=== PATIENT | male | born 1955 | race Asian ===

== ENCOUNTER 2025-03-14 10:35 | Outpatient (AMB) | payer MEDICARE, MEDICAID, SELFPAY ==
[2025-03-14 10:43] VITALS: BMI 28.3
--- NOTE | 2025-03-14 10:43 | A.PHYSOV_ITS ---
Vital Signs 03/14/25 10:43 Height 5 ft 5 in Weight 170 lb BMI 28.3 Intake Visit Reasons: NPV Mandie Ref- chronic rt shoulder/rt ankle pain Intake Note: Patient is a 70 year old male in office today as new patient for right shoulder pain and right ankle pain. Network Contract Manager Services: Network Contract Manager Offered & Declined Network Contract Manager Name: Zi Salas is here to translate. Allergies No Known Allergies Allergy (Verified 03/14/25 10:45) HPI Comments Details: Mr. Paul is a 70-year-old male seen in consultation today for right-sided shoulder and ankle pain. Patient denies any specific trauma. Has a pain level today of 7/10. The symptoms are worse with abduction of the right shoulder as well as ambulation on his right ankle. He has not completed. Patient will be traveling for the next 2 months. He is requesting cortisone injection to his right shoulder and right ankle. He has a pain level today of 7/10. Patient has been using naproxen for pain. He denies any incontinence, saddle anesthesia urinary retention. I reviewed the referring provider's no prior to consultation. Procedure: Right subacromial injection 03/14/2025 Right ankle cortisone injection 03/14/2025 [facility] Social History (Updated 03/14/25 @ 10:46 by Ivette Hernandez MA) Alcohol intake: current Alcohol intake frequency: holidays/special occasions only Patient Tobacco Use Status: Never used Tobacco Review of Systems Narrative Right-sided ankle and shoulder pain. No paresthesias or weakness. Physical Exam Exam Exam: Cervical Spine: Nontender to palpation of the cervical spine. Full range of motion. Special Tests: Axial Compression test: Negative Spurlings test: Negative Lhermitte's sign is Negative Upper Extremities: Patient has tender to the lateral deltoid. Has full range of motion of his shoulder in all planes. He has a positive Neer test. Negative empty can test. Full range of motion of his elbow wrist and hand. Equal aquatic laborer strength bilaterally. Neuro: Sensation: Intact to upper extremities bilateral to light touch Strength C5 (Elbow Flexion): 5/5 on the left and 5/5 on the right. C6 (Elbow Ext): 5/5 on the left and 5/5 on the right. C7 (Elbow Ext): 5/5 on the left and 5/5 on the right. C8 (Finger Flex): 5/5 on the left and 5/5 on the right. T1 (Finger Abd/Add): 5/5 on the left and 5/5 on the right. DTR: C5 (Biceps): Left 2 Right 2 C6 (Brachioradialis): Left 2 Right 2 C7 (Triceps): Left 2 Right 2 Umstafa sign: Negative No pathologic clonus. No involuntary movement. Examination of his right ankle, there is no effusion or deformity. He is tender over the talar dome. He has full range of motion of his ankle in all planes. He is otherwise neurovascularly intact. Vital Signs: BMI result Body Mass Index 28.3 Office Procedures AMB Ankle Injection Ankle Joint injection Procedure Details: Right Ankle injection patient was educated about the risks, complications and benefits of corticosteroid injection including increased serum glucose, infection, nerve damage, bleeding, tendon and ligament damage, fat atrophy, darkening in pigmentation of the skin. Patient's questions were answered at this time. Patient verbally consented to corticosteroid injection of the ankle. The anterior medial aspect of the ankle joint is cleansed with Betadine medial to the anterior tibialis tendon. Ethyl chloride was then used to desensitize the skin. With a 22-gauge needle 40 mg of Kenalog and 1 mL 2% lidocaine were injected into the ankle joint. Patient was cleansed with an alcohol prep and a Band-Aid was then applied. Patient tolerated the procedure well without immediate complication. Ankle Joint Injection : Right Procedure code (CPT) selection complete AMB Shoulder Injection AMB Shoulder Injection Procedure Details: Right Subacromial injection Procedure: The patient was educated about risks, complications and benefits including but not limited to increased serum glucose, infection, nerve damage, bleeding, tendon/ligament damage and pain. We agree with a subacromial injection is the next best step in the treatment plan. Verbal consent was obtained. Using aseptic technique, the skin was cleansed with Betadine. Ethyl chloride was used to desensitize the skin. Using a posterior approach, 40 mg of Kenalog and 3 mL 2% lidocaine were injected using a 25-gauge inch and a half needle into the subacromial space. The patient tolerated the procedure well without immediate complication. Postinjection instructions were given. Shoulder Injection - : Right All charges added?: Procedure code (CPT) selection complete Office Meds Kenalog 40 mg/mL suspension for injection Performing Provider: KURT Hayes Per[facility] Administered by: KURT Hayes on 03/14/25 12:44 Dose Route Admin Location Dispensed Lot Number Expiration Date [facility] [employer] Sequestration Plant Manager 40 mg intra-articular 1 mL [id number] [employer] Total Dispensed Waste 1 mL 0 % lidocaine (PF) 20 mg/mL (2 %) injection solution Performing Provider: KURT Hayes Performing Location: [facility] Administered by: KURT Hayes on 03/14/25 12:44 Dose Route Admin Location Dispensed Lot Number Expiration Date [facility] [employer] Sequestration Plant Manager 20 mg intra-articular 50 mL [id number] Total Dispensed Waste 50 mL 0 % Kenalog 40 mg/mL suspension for injection Performing Provider: KURT Hayes Performing Location: [facility] Administered by: KURT Hayes on 03/14/25 12:44 Dose Route Admin Location Dispensed Lot Number Expiration Date [facility] [employer] Sequestration Plant Manager 40 mg intra-articular 1 mL [id number] [employer] Total Dispensed Waste 1 mL 0 % lidocaine (PF) 20 mg/mL (2 %) injection solution Performing Provider: KURT Hayes Performing Location: [facility] Administered by: KURT Hayes on 03/14/25 12:44 Dose Route Admin Location Dispensed Lot Number Expiration Date [facility] [employer] Sequest[employer] Plant Manager 60 mg intra-articular 3 mL [id number] Total Dispensed Waste 3 mL 0 % Assessment & Plan Assessment & Plan (1) Osteoarthritis of ankle, right: Code(s): M19.071 - Primary osteoarthritis, right ankle and foot Category: Medical Qualifiers: Osteoarthritis type: primary Qualified Code(s): M19.071 - Primary osteoarthritis, right ankle and foot Plan Mr. Paul is a 70-year-old male seen in consultation today for right shoulder impingement and ankle osteoarthritis. He was educated about the course was condition and treatment options. Patient declined physical therapy. He will continue his medications as prescribed. He consented to right subacromial injection as well as right ankle joint injection. He was given post-injection instructions, recommend: Moist heat compresses for 15 minutes up to 5 times daily. Continue rotator cuff strengthening in his home exercise plan. We discussed the benefits of proper nutrition and exercise to maintain a healthy body weight to improve longevity and function. We also discussed the benefits of proper lifting techniques, core strengthening and proper posture. Follow-up with our office as needed. Thank you for allowing me to participate in the care of your patient. Orders: Orders AMB Shoulder Injection Today M19.071 - Primary osteoarthritis, right ankle and foot, M25.811 - Other specified joint disorders, right shoulder AMB Ankle Injection Today M19.071 - Primary osteoarthritis, right ankle and foot Coding Level of Care Code Tele New Pt Level 4 (73514) Diagnoses Primary osteoarthritis of right ankle M19.071 Osteoarthritis type: primary CPT Codes Ankle Joint injection - Ankle Joint Injection 16880: Right ([id number]) AMB Shoulder Injection - Hip/Bursa Injection - : Right ([id number])
--- OUTSIDE RECORDS SUMMARY | 2025-03-14 13:07 | XMS_ITS | Encounter Summary ---
Author Organization [facility] Address [address] [place] [address] Care Team Providers Care Household Appliances Salesperson Name Role Phone Lemuel Amanda MD Primary Care Provider [phone] Reason for Visit * Reason Onset Date Comments Prior Auth 02/19/2025 Encounter Details Date Type Department Care Team (Late st Contact Info) Description 02/19/2025 Telephone Endocrinology - [place] [address] [place] [phone] Luisa Kumar PA [address] [place] [address] Social History Tobacco Use Types Packs/Day Years Used Date Smoking Tobacco: Former Smokeless Tobacco: Never Alcohol Use Standard Drinks/Week Comments Yes 2 (1 standard drink = 0.6 oz pur e alcohol) Sex and Gender Information Value Date Recorded Sex Assigned at Not on file Legal Sex Male 7:45 PM EST Gender Identity Not on file Sexual Orientation Not on file documented as of this encounter Progress Notes * Shon Aguila - 02/19/2025 3:15 PM EST Endocrine Call Primary endocrine provider: Luisa Kumar PA-C Is the endocrine provider in the office toady?: yes Who is calling? A pharmacist: Pharmacy: [facility] Pharmacist Name: n/a Pharmacy . If not the patient or parent/guardian please check for authorization to share/verbal release. Why is the person calling? Prior authorization. Insulin pumps or CGM (Kashif or Dexcom). Please forward to endocrine pool (p [phone]). Cover my meds Freestyle kashif 3 plus sensor Sosa: [id number] documented in this encounter Plan of Treatment Upcoming Encounters Date Type Department Care Team (Late st Contact Info) Description 04/25/2025 8:45 AM EST Office Visit Endocrinology - [address] [phone] Luisa Kumar PA [address] [place], [place] 04/25/2025 2:00 PM EST Consult Nephrology - [address] [phone] Dutch Melendez MD [address] [phone] documented as of this encounter Visit Diagnoses Not on filedocumented in this encounter Care Teams Household Appliances Salesperson Relationship Specialty Start Date End Date Lemuel Amanda MD [address] [place] [phone] PCP - General Internal Medicine 10/16/14 documented as of this encounter
--- OUTSIDE RECORDS SUMMARY | 2025-03-14 13:07 | XMS_ITS | Encounter Summary ---
Author Organization [facility] [place] Address [address] [place] [address] Care Team Providers Care Network Engineer Administrator Name Role Phone Lemuel Amanda MD Primary Care Provider [phone] Encounter Details Date Type Department Care Team (Late st Contact Info) Description 01/30/2025 Results Follow-Up Internal Medicine - [address] [phone] Aaron Rico NP [address] [place] [address] Social History Tobacco Use Types Packs/Day Years [...] on file documented as of this encounter Ordered Prescriptions Prescription Sig Dispense Quantity Refills Last Filled Start Date End Date glipiZIDE (GLUCOTROL XL) 2.5 mg 24 hr tabletIndications: New onset type 2 diabetes mellitus (CMS/HCC V24, CMS/HCC V28) Take 1 tablet (2.5 mg total) by mouth 1 (one) time each day. Do not crush, chew, or split. 90 each 01/30/2025 02/14/2025 documented in this encounter Plan of Treatment Upcoming Encounters Date Type Department Care Team (Late st Contact Info) Description 04/25/2025 8:45 AM EST Office Visit Endocrinology - [address] [phone] Luisa Kumar PA [address] [place], [place] 04/25/2025 2:00 PM EST Consult Nephrology - [address] [phone] [place] [address] [place] [phone] documented as of this encounter Visit Diagnoses Diagnosis New onset type 2 diabetes mellitus (CMS/HCC V24, CMS/HCC V28)- Primary documented in this encounter Care Teams Network Engineer Administrator Relationship Specialty Start Date End Date Lemuel Amanda MD [address] [place] [phone] PCP - General Internal Medicine 10/16/14 documented as of this encounter
--- OUTSIDE RECORDS SUMMARY | 2025-03-14 13:07 | XMS_ITS | Clinical Summary ---
Author Organization [address] [facility] Address [address] [place] [phone] Phone Care Team Providers Care Novelty Twister Tender Name Role Phone Lemuel Amanda MD Primary Care Provider [phone] Allergies No known active allergies Medications naproxen (NAPROSYN) 500 mg tablet Take 1 tablet (500 mg total) by mouth 2 (two) times a day if needed for mild pain (pain). 60 tablet 1 025 2024 Active freestyle 28 gauge lancetsIndication s:New onset type 2 diabetes mellitus (CMS/HCC V24, CMS/HCC V28) Use as instructed 100 each 1 025 Active meloxicam (MOBIC) 15 mg tabletIndications :Chronic right shoulder pain,Chronic pain of right ankle Take 1 tablet (15 mg total) by mouth 1 (one) time each day. 90 each 025 Active atorvastatin (LIPITOR) 20 mg tabletIndications :Hyperlipidemia, unspecified hyperlipidemia type Take 1 tablet (20 mg total) by mouth 1 (one) time each day. 90 each 025 Active FreeStyle Test test strip Check sugars twice daily E11.9 100 each 2 025 Active blood-glucose sensor (FreeStyle Kashif 3 Plus Sensor)Indication s:not covered by insurance, they will pay out of pocket Apply 1 sensor and change every 15 days. Box = Kit = EA 2 each 5 025 Active metFORMIN XR (GLUCOPHAGE-XR) 500 mg 24 hr tablet Take 1 tablet (500 mg total) by mouth 1 (one) time each day. Do not crush, chew, or split. 30 each 2 025 2025 Active blood-glucose meter kit 1 kit by Not Applicable route. 024 2024 Discontinued blood-glucose sensor (FreeStyle Kashif 3 Plus Sensor) deviceIndications :not covered by insurance, they will pay out of pocket Box = Kit = EA 2 each 11 024 2024 Discontinued(R eorder) glipiZIDE (GLUCOTROL XL) 2.5 mg 24 hr tabletIndications :New onset type 2 diabetes mellitus ([facility] V24, [facility] V28) Take 1 tablet (2.5 mg total) by mouth 1 (one) time each day. Do not crush, chew, or split. 90 each 025 2024 Discontinued Active Problems Problem Noted Date Diagnosed Date New onset type 2 diabetes me llitus ([facility] V24, [facility] V28) 01/05/2024 Glaucoma suspect of both eyes 07/06/2017 ARMD (age related macular degeneration) 07/07/19 18 Anatomical narrow angle 07/06/2017 Tubular adenoma of colon 05/24/2017 Overview (02/22/2024): 05/2017 - several. Repeat colonoscopy 3 years Lumbago 10/30/2014 Palpitations 11/30/2013 Hyperlipidemia 11/30/2013 Encounters Date Type Department Care Team Description 03/05/2025 [facility] [address] [place] [address] Lemuel Amanda MD 02/19/2025 Telephone Endocrinology - [address] [phone] Luisa Kumar PA 02/14/2025 9:00 AM EST Consult Endocrinology - [address] [phone] Luisa Kumar PA New onset type 2 diabetes mellitus ([facility] V24, [facility] V28) 01/30/2025 Results Follow-Up Internal Medicine - [address] [place] [phone] Aaron Rico NP 01/29/2025 8:45 AM EDT Office Visit Internal Medicine - [address] [place] [phone] Aaron Rico NP New onset type 2 diabetes mellitus (CMS/HCC V24, CMS/HCC V28) (Primary Dx); Elevated blood pressure reading; Chronic right shoulder pain; Chronic pain of right ankle; Hyperlipidemia, unspecified hyperlipidemia type from Last 3 Months Immunizations Immunization Administration Dates Next Due PPD Test 01/06/2015,11/21/2013 Pneumococcal polysaccharide 23 valent (Pneumovax 23) 2yo and older 07/06/2013 Tdap Tetanus diptheria acell ular pertussis (Boostrix; Adacel) 7yo and older 11/11/2023,07/06/2013 Surgical History Surgery Date Site/Laterality Comments OTHER SURGICAL HISTORY PROCEDURE: DENIES PREVIOUS SURGERY COLONOSCOPY 01/31/12 [facility] PROCEDURE: HISTORICAL COLONOSCOPY; COMMENT: normal, but mediocre prep; repeat in 2017 COLONOSCOPY W/ POLYPECTOMY 05/20/2017 PROCEDURE: AL COLSC FLX W/RMVL OF TUMOR POLYP LESION SNARE TQ; COMMENT: adenomas and hemorrhoids; repeat in 3 yrs Medical History Medical History Date Comments Scabies DX:Scabies Tubular adenoma of colon 05/24/2017 DX:Tubu lar adenoma of colon ARMD (age related macular degeneration) 07/06/2017 DX:ARMD (age related macular degeneration) New onset type 2 diabetes me llitus (CMS/HCC V24, CMS/HCC V28) 01/05/2024 DX:New onset type 2 diabete s mellitus (HCC) Family History Medical History Relation Name Comments Cataracts Mother Relation Name Status Comments Brother 1 Alive A & W Brother 2 Alive A & W Daughter 1 Alive A & W Daughter 2 Alive A & W Father unknown Maternal Grandfather Maternal Grandmother Mother Alive htn Paternal Grandfather Paternal Grandmother Sister Alive A & W Son 1 Alive A & W Son 2 Alive A & W Social History Tobacco Use Types Packs/Day Years Used Date Smoking Tobacco: Former Smokeless Tobacco: Never Alcohol Use Standard Drinks/Week Comments Yes 2 (1 standard drink = 0.6 oz pur e alcohol) Sex and Gender Information Value Date Recorded Sex Assigned at Not on file Legal Sex Male 7:45 PM EST Gender Identity Not on file Sexual Orientation Not on file Obstetrics History Last Filed Vital Signs Vital Sign Reading Time Taken Comments Blood Pressure 139/85 02/14/2025 9:00 AM EST Pulse 65 02/14/2025 9:00 AM EST Temperature 36.5 C (97.7 F) 03/20/2024 10:37 AM EST Respiratory Rate 12 02/14/2025 9:00 AM EST Oxygen Saturation 96% 03/20/2024 10:37 AM EST Inhaled Oxygen Concentration - - Weight 78.5 kg (173 lb) 02/14/2025 9:00 AM EST Height 162.6 cm (5' 4 ) 02/14/2025 9:00 AM EST Body Mass Index 29.7 02/14/2025 9:00 AM EST Plan of Treatment Upcoming Encounters Date Type Department Care Team (Late st Contact Info) Description 04/25/2025 8:45 AM EST Office Visit Endocrinology - [address] [phone] Luisa Kumar PA [address] [place], [place] 04/25/2025 2:00 PM EST Consult Nephrology - [address] [phone] Dutch Melendez MD [address] [address] Health Maintenance Due Date Last Done Comments Diabetes: Annual Foot Exam 01/31/1966 Diabetes: Annual Retina Eye Exam 01/31/1966 Zoster Vaccines (1 of 2) 01/31/2006 Pneumococcal Vaccine: 50+ Years (2 of 2 - PCV) 07/06/2014 07/06/2013 Falls Risk Assessment 03/13/2022 Medicare Annual Wellness Visit 03/13/2022 Social Influencers of Health Screening 03/13/2022 Depression Screening 04/11/2024 COVID-19 Vaccine (3 - season) 2024 08/24/2020, 08/02/2020 Influenza Vaccine (#1) 2024 04/25/2012 Diabetes: Blood Sugar Control Test (HGBA1C) 07/30/2025 01/29/2025, 03/28/2024, 01/05/2024, Additional history exists Diabetes: Annual Urine Albumin-Creatinine Ratio (uACR) 01/29/2026 01/29/2025, 01/05/2024 Diabetes: Annual GFR (Glomerular Filtration Rate) 01/29/2026 01/29/2025, 03/28/2024, 01/05/2024, Additional history exists Cholesterol Screening (Lipid Panel) 01/29/2030 01/29/2025, 03/28/2024, 01/05/2024, Additional history exists RSV Immunization Adult Patients (1 - 1-dose 75+ series) 01/31/2031 Colorectal Cancer Screening: Colonoscopy 04/11/2032 04/11/2022 DTaP,Tdap,and Td Vaccines (3 - Td or Tdap) 11/10/2033 11/11/2023, 07/06/2013 Hepatitis C Screening Completed 07/07/2013 Abdominal Aortic Aneurysm (AAA) Screen Completed 12/06/2023, 12/06/2023, 12/06/2023 HIB Vaccines Aged Out No longer eligi ble based on patient's age to complete this topic HPV Vaccines Aged Out No longer eligi ble based on patient's age to complete this topic Hepatitis A Vaccines Aged Out No long er eligible based on patient's age to complete this topic Hepatitis B Vaccines Aged Out No long er eligible based on patient's age to complete this topic IPV Vaccines Aged Out No longer eligi ble based on patient's age to complete this topic MMR Vaccines Aged Out No longer eligi ble based on patient's age to complete this topic Meningococcal ACWY Vaccine Aged Out N o longer eligible based on patient's age to complete this topic Meningococcal B Vaccine Aged Out No l onger eligible based on patient's age to complete this topic RSV Immunization Patients Under 20 months Aged Out No longer eligible based on patient's age to complete this topic Varicella Vaccines Aged Out No longer eligible based on patient's age to complete this topic Procedures Procedure Name Priority Date/Time Associated Diagnosis Comments POC GLUCOSE Routine 02/14/2025 9:08 AM EST New onset type 2 diabetes mellitus ([facility]/HCC V24, [facility] V28) HEMOGLOBIN A1C Routine 01/29/2025 9:55 AM EDT New onset type 2 diabetes mellitus ([facility]/HCC V24, [facility] V28) MICROALBUMIN CREATININE URINE RATIO Routine 01/29/2025 9:55 AM EDT New onset type 2 diabetes mellitus (CMS/HCC V24, CMS/HCC V28) BASIC METABOLIC PANEL Routine 01/29/2025 9:55 AM EDT New onset type 2 diabetes mellitus ([facility]/HCC V24, CMS/HCC V28) Chronic right shoulder pain Chronic pain of right ankle LIPID PANEL WITH REFLEX TO DIRECT LDL Routine 01/29/2025 9:55 AM EDT Hyperlipidemia, unspecified hyperlipidemia type HEPATIC FUNCTION PANEL Routine 01/29/2025 9:55 AM EDT Hyperlipidemia, unspecified hyperlipidemia type ABDOMINAL AORTIC ANEURYSM SCRREN Routine 12/06/2023 COLONOSCOPY Routine 04/11/2022 HEPATITIS C SCREENING Routine 07/07/2013 from Last 3 Months or Most Recently Relevant to Health Maintenance Results * (ABNORMAL) POC glucose manually resulted (02/14/2025 9:08 AM EST) Glucose POC 120(A) 70 - 100 mg/dL Blood Capillary blood specimen / Unknown 02/14/2025 9:08 AM EST Luisa HICKS POINT OF CARE TEST ENTER/EDIT OR DERABLES Final Result * (ABNORMAL) Lipid panel with reflex to direct LDL (01/29/2025 9:55 AM EDT) Cholesterol 173 0 - 200 mg/dL LAB CHEMISTRY METHOD 01/29/2025 3:53 PM EDT [facility] Triglycerides 236(H) 0 - 150 mg/dL LAB CHEMISTRY METHOD 01/29/2025 3:53 PM EDT [facility] HDL 42 >=40 mg/dL LAB CHEMISTRY METHOD 01/29/2025 3:53 PM EDT [facility] LDL Calculated 84 0 - 100 mg/dL LAB CHEMISTRY METHOD 01/29/2025 3:53 PM EDT [facility] Comment:Estimated LDL Calcul ated using equation: Total cholesterol - HDL cholesterol - (Triglycerides/5) VLDL Cholesterol Anders 47.2 mg/dL LAB CHEMISTRY METHOD 01/29/2025 3:53 PM EDT [facility] Non HDL Chol. (LDL+VLDL) 131 <145 mg/dL LAB CHEMISTRY METHOD 01/29/2025 3:53 PM EDT [facility] Chol/HDL Ratio 4.1 0.0 - 4.4 LAB CHEMISTRY METHOD 01/29/2025 3:53 PM EDT [facility] Blood Venous blood specimen / Unknown Venipuncture / Unknown 01/29/2025 9:55 AM EDT 01/29/2025 9:55 AM EDT us Aaron Rico NP LAB BLOOD ORDERABLES Final Res ult [facility] [address] [place] [address], * Microalbumin creatinine urine ratio (01/29/2025 9:55 AM EDT) Creatinine, Urine 129.0 mg/dL LAB CHEMISTRY METHOD 01/29/2025 3:15 PM EDT [facility] Microalb, Ur 15.9 0.0 - 29.0 mg/L LAB CHEMISTRY METHOD 01/29/2025 3:15 PM EDT [facility] Microalb/Creat Ratio 12 <30 mg/g creat LAB CHEMISTRY METHOD 01/29/2025 3:15 PM EDT [facility] Urine Urine specimen obtained by clean catch procedure / Unknown Non-blood Collection / Unknown 01/29/2025 9:55 AM EDT 01/29/2025 9:55 AM EDT us Aaron Rico NP LAB URINE ORDERABLES Final Res ult Performing Organization Address City/[facility]/ZIP Co de Phone Number [facility] [address] [place] [address], [place] [phone] * (ABNORMAL) Hemoglobin A1c (01/29/2025 9:55 AM EDT) Hemoglobin A1C 8.0(H) <6.5 % LAB CHEMISTRY METHOD 01/29/2025 6:05 PM EDT [facility] Mean Bld Glu Estim. 183 mg/dL LAB CHEMISTRY METHOD 01/29/2025 6:05 PM EDT [facility] Blood Venous blood specimen / Unknown Venipuncture / Unknown 01/29/2025 9:55 AM EDT 01/29/2025 9:55 AM EDT us Aaron Rico NP LAB BLOOD ORDERABLES Final Res ult Performing Organization Address City/[facility]/ZIP Co de Phone Number [facility] [address] [place] [address], [place] [phone] * Hepatic function panel (01/29/2025 9:55 AM EDT) Total Protein 7.4 6.0 - 8.0 g/dL LAB CHEMISTRY METHOD 01/29/2025 3:52 PM EDT [facility] Albumin 3.8 3.2 - 5.0 g/dL LAB CHEMISTRY METHOD 01/29/2025 3:52 PM EDT [facility] Total Bilirubin 0.4 0.0 - 1.4 mg/dL LAB CHEMISTRY METHOD 01/29/2025 3:52 PM EDT [facility] Bilirubin, Direct 0.1 0.0 - 0.3 mg/dL LAB CHEMISTRY METHOD 01/29/2025 3:52 PM EDT [facility] Bilirubin, Indirect 0.3 0.0 - 1.1 mg/dL LAB CHEMISTRY METHOD 01/29/2025 3:52 PM EDT [facility] ALT (SGPT) 31 10 - 60 unit/L LAB CHEMISTRY METHOD 01/29/2025 3:52 PM EDT [facility] AST (SGOT) 15 10 - 42 unit/L LAB CHEMISTRY METHOD 01/29/2025 3:52 PM T [facility] Alkaline Phosphatase 64 42 - 121 unit/L LAB CHEMISTRY METHOD 01/29/2025 3:52 PM T [facility] Blood Venous blood specimen / Unknown Venipuncture / Unknown 01/29/2025 9:55 AM EDT 01/29/2025 9:55 AM EDT us Aaron Rico BREAKDOWN PERSON LAB BLOOD ORDERABLES Final Res ult [facility] [address] [place] [address], * (ABNORMAL) Basic metabolic panel (01/29/2025 9:55 AM EDT) Sodium 137 133 - 145 mmol/L LAB CHEMISTRY METHOD 01/29/2025 3:52 PM EDT [facility] Potassium 4.4 3.5 - 5.5 mmol/L LAB CHEMISTRY METHOD 01/29/2025 3:52 PM T [facility] Chloride 106 96 - 110 mmol/L LAB CHEMISTRY METHOD 01/29/2025 3:52 PM EDT [facility] CO2 28 21 - 32 mmol/L LAB CHEMISTRY METHOD 01/29/2025 3:52 PM EDT [facility] Anion Gap 3 3 - 11 LAB CHEMISTRY METHOD 01/29/2025 3:52 PM [facility] Glucose 182(H) 70 - 100 mg/dL LAB CHEMISTRY METHOD 01/29/2025 3:52 PM EDT [facility] BUN 16 5 - 25 mg/dL LAB CHEMISTRY METHOD 01/29/2025 3:52 PM [facility] Creatinine 0.83 0.70 - 1.30 mg/dL LAB CHEMISTRY METHOD 01/29/2025 3:52 PM [facility] eGFR 95 >=60 mL/min/1. 73m2 LAB CHEMISTRY METHOD 01/29/2025 3:52 PM T [facility] Comment:Calculation based on the Chronic Kidney Disease Epidemiology Collaboration (CKD-EPI) equation refit without adjustment for race. BUN/Creatinine Ratio 19.3 LAB CHEMISTRY METHOD 01/29/2025 3:52 PM [facility] Calcium 9.1 8.5 - 10.5 mg/dL LAB CHEMISTRY METHOD 01/29/2025 3:52 PM [facility] Blood Venous blood specimen / Unknown Venipuncture / Unknown 01/29/2025 9:55 AM EDT 01/29/2025 9:55 AM EDT Aaron Rico BREAKDOWN PERSON LAB BLOOD ORDERABLES Final Res ult [facility] [address] [place] [address], * Abdominal Aortic Aneurysm Screen (12/06/2023) Abdominal Aortic Aneurysm (AAA) Screening abstracted Anatomical Region Laterality Modality Other Historical Provider HEALTH MAINTENANCE Final Result * Colonoscopy (04/11/2022) Colonoscopy no interpretation , abstracted Anatomical Region Laterality Modality Other Historical Provider HEALTH MAINTENANCE Final Result * Hepatitis C Screening (07/07/2013) Hepatitis C Screening abstracted Historical Provider HEALTH MAINTENANCE Final Result from Last 3 Months or Most Recently Relevant to Health Maintenance Insurance MEDICARE [place]ICAID - [place] [facility] MEDICARE Care Teams Novelty Twister Tender Relationship Specialty Start Date End Date Lemuel Amanda MD [address] [place] [id number] PCP - General Internal Medicine 10/16/14
== END 2025-03-14 11:48 | disposition home or self-care (01) ==
LOC: HO.HPHYS 10:35
PROVIDERS: PCP Internal Medicine; Visit Provider Physician Assistant
DX: M25.811 Other specified joint disorders, right shoulder (principal); M19.071 Primary osteoarthritis, right ankle and foot
CPT/HCPCS: 20605; 20610; 99204

== ENCOUNTER → 2025-03-14 10:35 | Outpatient (BNVA) | payer MEDICARE, MEDICAID, SELFPAY | PROVIDERS: PCP Internal Medicine; Visit Provider Physician Assistant | DX: M19.071 Primary osteoarthritis, right ankle and foot (principal); M25.811 Other specified joint disorders, right shoulder | CPT/HCPCS: 20605; 20610; 99202; J2003; J3301 ==